=== PATIENT | male | born 1960 | race Caucasian/White ===

== ENCOUNTER 2021-08-08 18:23 | Inpatient (IN) | payer MEDICARE, MEDICAID ==
[2021-08-09] MEDS ORDERED: LORazepam 2 MG/ML SDV ONE (03:15)
[2021-08-09] MEDS ORDERED: Sodium Chloride 0.45% 1,000 ML IV SCH (03:30)
[2021-08-09] MEDS ORDERED: LORazepam 2 MG/ML SDV IVPUSH ONE ×2 (03:44→06:43)
[2021-08-09] MEDS ORDERED: Ketorolac 30 MG/ML SDV IVPUSH ONE (06:50)
[2021-08-09] MEDS ORDERED: HYDROmorphone 0.5 MG/0.5 ML Syringe IVPUSH ONE (06:50)
[2021-08-09] MEDS ORDERED: Metoprolol Succinate 25 MG Tab.ER PO ONE (07:16)
[2021-08-09] MEDS: Divalproex Sodium Delayed-Release 250 MG Tab.CR PO SCH (16:02)
[2021-08-09] MEDS: Meloxicam 7.5 MG Tab PO SCH (16:02)
[2021-08-09] MEDS: risperiDONE 1 MG Tab PO SCH (21:39)
[2021-08-09] MEDS ORDERED: Ondansetron 4 MG/2 ML SDV IV PRN (22:34)
[2021-08-09] MEDS ORDERED: Acetaminophen 325 MG Tab PO PRN (22:34)
[2021-08-09] MEDS ORDERED: Ondansetron 4 MG Tab.DIS PO PRN (22:34)
[2021-08-10] MEDS: Divalproex Sodium Delayed-Release 250 MG Tab.CR PO SCH ×2 (06:56→16:38)
[2021-08-10] MEDS: Meloxicam 7.5 MG Tab PO SCH (08:36)
[2021-08-10] MEDS: Enoxaparin 40 MG/0.4 ML Syringe SUBCUT SCH (12:48)
[2021-08-10] MEDS: Metoprolol Succinate 25 MG Tab.ER PO SCH (12:48)
[2021-08-10] MEDS: Aspirin 81 MG Tab.EC PO SCH (12:48)
[2021-08-10] MEDS: Magnesium Oxide 400 MG Tab PO SCH (20:52)
[2021-08-10] MEDS: risperiDONE 1 MG Tab PO SCH (20:52)
[2021-08-11] MEDS: Divalproex Sodium Delayed-Release 250 MG Tab.CR PO SCH ×2 (06:37→17:30)
[2021-08-11] MEDS: Enoxaparin 40 MG/0.4 ML Syringe SUBCUT SCH (08:22)
[2021-08-11] MEDS: Aspirin 81 MG Tab.EC PO SCH (08:22)
[2021-08-11] MEDS: Magnesium Oxide 400 MG Tab PO SCH ×2 (08:22→21:11)
[2021-08-11] MEDS: Metoprolol Succinate 25 MG Tab.ER PO SCH (08:22)
[2021-08-11] MEDS: risperiDONE 1 MG Tab PO SCH (21:12)
[2021-08-12] MEDS: Divalproex Sodium Delayed-Release 250 MG Tab.CR PO SCH ×2 (06:12→16:07)
[2021-08-12] MEDS: Metoprolol Succinate 25 MG Tab.ER PO SCH (08:28)
[2021-08-12] MEDS: Aspirin 81 MG Tab.EC PO SCH (08:28)
[2021-08-12] MEDS: Enoxaparin 40 MG/0.4 ML Syringe SUBCUT SCH (08:28)
[2021-08-12] MEDS: Magnesium Oxide 400 MG Tab PO SCH ×2 (08:28→21:29)
[2021-08-12] MEDS: atorvaSTATin 40 MG Tab PO SCH (21:29)
[2021-08-12] MEDS: risperiDONE 1 MG Tab PO SCH (21:29)
[2021-08-13] MEDS: Magnesium Oxide 400 MG Tab PO SCH ×2 (08:50→21:28)
[2021-08-13] MEDS: Cholecalciferol (Vitamin D3) 25 MCG Tab PO SCH (08:50)
[2021-08-13] MEDS: Enoxaparin 40 MG/0.4 ML Syringe SUBCUT SCH (08:51)
[2021-08-13] MEDS: Metoprolol Succinate 25 MG Tab.ER PO SCH (08:51)
[2021-08-13] MEDS: Aspirin 81 MG Tab.EC PO SCH (08:51)
[2021-08-13] MEDS: Cyanocobalamin (Vitamin B12) 1,000 MCG Tab PO SCH (08:51)
[2021-08-13] MEDS ORDERED: risperiDONE 1 MG Tab PO SCH (21:00)
[2021-08-13] MEDS ORDERED: Divalproex Sodium Delayed-Release 250 MG Tab.CR PO SCH ×2 (21:00)
[2021-08-13] MEDS: atorvaSTATin 40 MG Tab PO SCH (21:28)
[2021-08-14] MEDS: Cholecalciferol (Vitamin D3) 25 MCG Tab PO SCH (09:03)
[2021-08-14] MEDS: Aspirin 81 MG Tab.EC PO SCH (09:03)
[2021-08-14] MEDS: Magnesium Oxide 400 MG Tab PO SCH (09:04)
[2021-08-14] MEDS: Metoprolol Succinate 25 MG Tab.ER PO SCH (09:04)
[2021-08-14 09:05] VITALS: BP 147/89; PULSE 87
[2021-08-14] MEDS: Enoxaparin 40 MG/0.4 ML Syringe SUBCUT SCH (09:05)
[2021-08-14] MEDS: Cyanocobalamin (Vitamin B12) 1,000 MCG Tab PO SCH (09:05)
== END 2021-08-14 11:57 | DRG 885 ==
LOC: SUPCPDRO 18:23 → JD.ED 18:23 → JD.MS 08-09 22:38 → OBSVTOIN 08-11 11:44
PROVIDERS: ADMIT Hospitalist; ATTEND Hospitalist
DX: F31.62 Bipolar disorder, current episode mixed, moderate (principal); F20.9 Schizophrenia, unspecified; I12.9 Hypertensive chronic kidney disease with stage 1 through stage 4 chronic kidney disease, or unspecified chronic kidney disease; F31.9 Bipolar disorder, unspecified; F20.0 Paranoid schizophrenia; K21.9 Gastro-esophageal reflux disease without esophagitis; F41.9 Anxiety disorder, unspecified; E53.8 Deficiency of other specified B group vitamins; Z86.16 Personal history of COVID-19; Z86.19 Personal history of other infectious and parasitic diseases; Z79.82 Long term (current) use of aspirin; Z79.899 Other long term (current) drug therapy; Z88.8 Allergy status to other drugs, medicaments and biological substances; G31.9 Degenerative disease of nervous system, unspecified; Z72.89 Other problems related to lifestyle; N18.31 Chronic kidney disease, stage 3a; E55.9 Vitamin D deficiency, unspecified; R56.9 Unspecified convulsions; R27.0 Ataxia, unspecified; R27.8 Other lack of coordination; E78.5 Hyperlipidemia, unspecified; Z20.822 Contact with and (suspected) exposure to COVID-19
CPT/HCPCS: 36415 ×2; 70450; 80053 ×2; 80143; 80179; 80306; 81001; 83735; 85025 ×2; 87641; 96372 ×2; 96374; 96376; 99285; A9270 ×14; G0378 ×3; J1650 ×2; J2060 ×2; U0002; 85027; 97162-GP; Q3014